=== PATIENT | male | born 1970 | race Hispanic/Latino ===

== ENCOUNTER 2016-12-13 17:04 | Emergency (ER) | payer BC ==
[2016-12-13 17:09] VITALS: BP 142/94; PULSE 72; RESP 20; TEMP 98.8; O2SAT 98
--- NOTE | 2016-12-13 17:28 | ED PDOC ---
HPI: General Adult Time Seen by Provider: 12/13/16 17:19 Chief Complaint (Nursing): Abnormal Skin Integrity Chief Complaint (Provider): arm pain History Per: Patient History/Exam Limitations: no limitations Onset/Duration Of Symptoms: Hrs (x5) Current Symptoms Are (Timing): Still Present Additional Complaint(s): Mason Renee is a 46 year old male with previous medical history of anxiety and irritable bowel syndrome, who presents to the emergency department with a complaint of left arm discoloration status post having blood drawn at lab facility this morning. He denies arm pain, fever or chills or swelling. Patient states he has never has this reaction in the past so he came to ED for evaluation out of concern for possible infection s/p venipuncture. Patient does not take any blood thinners. PMD: Xiomy Vasquez MD Past Medical History Reviewed: Historical Data, Nursing Documentation, Vital Signs Vital Signs: Last Vital Signs Temp 98.8 F 12/13/16 17:06 Pulse 72 12/13/16 17:06 Resp 20 12/13/16 17:06 BP 142/94 H 12/13/16 17:06 Pulse Ox 98 12/13/16 17:41 - Medical History PMH: Anxiety Other PMH: IBS - Surgical History Surgical History: No Surg Hx - Family History Family History: States: No Known Family Hx - Living Arrangements Living Arrangements: With Family - Social History Current smoker - smoking cessation education provided: No Alcohol: None Drugs: Denies - Allergies Allergies/Adverse Reactions: Allergies Allergy/AdvReac Type Severity Reaction Status Date / Time No Known Allergies Allergy Verified 12/13/16 17:06 Review of Systems ROS Statement: Except As Marked, All Systems Reviewed And Found Negative Constitutional: Negative for: Fever, Chills Cardiovascular: Negative for: Chest Pain, Palpitations Respiratory: Negative for: Cough Gastrointestinal: Negative for: Nausea, Vomiting Musculoskeletal: Negative for: Arm Pain Skin: Positive for: Other (left arm discoloration) Physical Exam - Reviewed Nursing Documentation Reviewed: Yes Vital Signs Reviewed: Yes - Physical Exam Appears: Positive for: Well, Non-toxic, No Acute Distress Skin: Positive for: Normal Color. Negative for: Rash Eye Exam: Positive for: Normal appearance Cardiovascular/Chest: Positive for: Regular Rate, Rhythm Respiratory: Positive for: CNT, Normal Breath Sounds Extremity: Positive for: Normal ROM, Other (small hematoma noted to left antecubital fossa, no warmth, swelling or erythematous streaking noted. ). Negative for: Tenderness, Deformity, Swelling Neurologic/Psych: Positive for: Alert, Oriented, Mood/Affect (anxious) - ECG O2 Sat by Pulse Oximetry: 98 (RA) Pulse Ox Interpretation: Normal Medical Decision Making Medical Decision Making: Initial Impression: Left forearm contusion/hematoma s/p blood draw Patient was instructed to ice and elevate left arm and to monitor area closely for worsening symptoms. He was instructed to RTED at any time if worse, otherwise to follow up with PMD in 1-2 days. Scribe Attestation: Documented by Natasha Earl, acting as a scribe for Madai Aguirre PA-C. Provider Scribe Attestation: All medical record entries made by the Scribe were at my direction and personally dictated by me. I have reviewed the chart and agree that the record accurately reflects my personal performance of the history, physical exam, medical decision making, and the department course for this patient. I have also personally directed, reviewed, and agree with the discharge instructions and disposition. Disposition - Clinical Impression Clinical Impression: Hematoma of arm, Contusion of arm - Patient ED Disposition Is Patient to be Admitted: No Counseled Patient/Family Regarding: Diagnosis, Need For Followup - Disposition Referrals: [facility] [Outside] Disposition: Routine/Home Disposition Time: 17:26 Condition: STABLE Additional Instructions: Ice and elevate affected area to reduce bruising. Tylenol as needed for pain. Monitor for signs of infection including warmth, tenderness or redness to area, fever or chills, and return to ED if worse at any time, otherwise follow up with primary care doctor. Instructions: Contusion in Adults (ED) Forms: [employer] ([place])
== END 2016-12-13 17:51 | disposition home or self-care (01) ==
LOC: H.ER 17:04
DX: S40.022A Contusion of left upper arm, initial encounter (principal); X58.XXXA Exposure to other specified factors, initial encounter